=== PATIENT | female | born 1935 | race Caucasian/White ===

== ENCOUNTER 2017-07-15 18:48 | Emergency (ER) | payer OTHER ==
[~2017-07-15] VITALS: Ht 177.8 cm; Wt 66.6 kg
[2017-07-15 18:56] VITALS: PULSE 76; TEMP 36.5; O2SAT 95; Ht 177.8 cm; Wt 66.6 kg
--- NOTE | 2017-07-15 19:24 | EMERGENCY ROOM VISIT NOTE ---
History Report prepared by Ghanshyam: Everardo Mathew Under the Supervision of: Dr. Abe Stockton M.D. First contact with patient: 19:09 Chief Complaint: FALL Stated Complaint: FALL. LACERATION TO HEAD History of Present Illness The patient is a 82 year old female who presents to the Emergency Room via EMS with complaints of a fall that occurred 1 hour ago while the patient was walking down the steps at the [facility]. Patient states that she fell 8-10 steps. She adds that she fell down on her right side. Patient has a laceration to her head and bump on left leg. She has associated symptoms of dizziness and pain to her buttocks. Patient denies neck pain, headaches, shoulder pain, or back pain. Patient denies losing consciousness after the fall. Patient adds that she takes Xarelto. 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 Patient states her health had been normal prior to the fall. Patient adds that she is up to date with her tetanus shot. Source of History: patient Onset: 1 hour ago Position: other (Global) Modifying Factors (Relieving): other (None) Associated Symptoms: No LOC Note: Patient has a laceration to her head, bump on left leg, dizziness, and buttocks pain. Review of Systems See HPI for pertinent positives & negatives. A total of 10 systems reviewed and were otherwise negative. Past Medical & Surgical Medical Problems: (1) Atrial fibrillation Family History No pertinent family history. Social History Smoking Status: Never Smoker Current/Historical Medications Scheduled Calcium Carbonate-Vitamin D (Oscal 500/200 D-3), 1 TAB PO DAILY Irbesartan (Irbesartan), 1 TAB PO DAILY Levothyroxine Sodium (Levothyroxine Sodium), Unknown Dose PO DAILY Multivitamin (Multivitamin), 1 TAB PO DAILY Rivaroxaban (Xarelto), 20 MG PO DAILY Spironolactone (Aldactone), Unknown Dose PO DAILYBB Allergies Coded Allergies: Acetaminophen (Verified Adverse Reaction, Unknown, GI SYMPTOMS, 07/15/17) Oxycodone (Verified Adverse Reaction, Unknown, GI SYMPTOMS, 07/15/17) Uncoded Allergies: MORHINE (Adverse Reaction, Unknown, GI SYMPTOMS, 07/15/17) vomiting Physical Exam Vital Signs Date Time Temp Pulse Resp B/P (MAP) Pulse Ox O2 Delivery O2 Flow Rate FiO2 07/15/17 21:11 155/95 07/15/17 18:56 36.5 76 18 154/105 95 Room Air Physical Exam GENERAL: Patient is in no acute distress. HEENT: Bandage covering the posterior scalp, no obvious facial trauma, mucous membranes moist. NECK: Stiff collar in place, mildly tender to the lower c-spine on palpitation, no bony step-off. BACK: Nontender thoracic or lumbar spine, no contusions. LUNGS: Clear to auscultation bilaterally, no wheeze, no rhonchi, breath sounds equal. HEART: Irregular with 3/6 systolic murmur and a normal rate. ABDOMEN: Soft, nontender, bowel sounds positive, no hernias, no peritonitis. EXTREMITIES: 5 or 6cm hematoma to the left proximal lateral calf, no evidence of extremity fracture, full range of motion of all joints. NEUROLOGIC: Oriented x 3, no acute motor or sensory deficits, no focal weakness. SKIN: No rash, no jaundice, no diaphoresis. Medical Decision & Procedures ER Provider Diagnostic Interpretation: Radiology results as stated below per my review and radiologist interpretation: CERVICAL SPINE CT CT DOSE: HISTORY: fall, lower neck pain TECHNIQUE: Multiaxial CT images of the cervical spine were performed and reformatted in the sagittal and coronal plane without the use of contrast. A dose lowering technique was utilized adhering to the principles of ALARA. COMPARISON: None. FINDINGS: Nondisplaced left occipital bone fracture is again noted. There is reversal of the normal lordotic curvature. Mild disc space narrowing throughout the majority of the cervical spine. The right C3-C4 facets are fused. Tiny nondisplaced fracture at the left inferior endplate anterior osteophyte at C6. This is best seen on image 47 of the sagittal sequences. The C1-C2 interval is intact. No pneumothorax. IMPRESSION: 1. Tiny nondisplaced fracture at the left inferior endplate anterior osteophyte at C6. 2. The remaining cervical spine is intact. 3. Reversal of the normal lordotic curvature. 4. Nondisplaced left occipital bone fracture is again noted. Electronically signed by: Simba Lozano M.D. 07/15/2017 8:[address] NON[address]AST CT DOSE: 1010.24 mGy.cm HISTORY: Fall. TECHNIQUE: Multiaxial CT images of the head were performed without the use of intravenous contrast. Automated exposure control was utilized for this study. A dose lowering technique was utilized adhering to the principles of ALARA. Comparison: None. Findings: Opacified right sphenoid sinus. The mastoid air cells are clear. Posterior scalp swelling with a soft tissue laceration. There is also nondisplaced left occipital bone fracture which extends to the foramen magnum. Atrophy and microvascular ischemic changes are noted. Small subdural hematomas seen within the frontal lobes anteriorly. These measure a maximal thickness of 4 mm. There is also a small amount of subarachnoid and intraparenchymal hemorrhage within the left anterior temporal lobe and bilateral anterior inferior frontal lobes consistent with contusions. Trace subarachnoid hemorrhage within the basilar cisterns. There is also a trace subdural hematoma within the anterior hemispheric fissure. Impression: 1. Small amount of intracranial hemorrhage as described above which is likely posttraumatic. 2. Nondisplaced left occipital bone fracture. Electronically signed by: Simba Lozano M.D. 07/15/2017 8:00 PM Laboratory Results 07/15/17 20:30 Test 07/15/17 20:30 Prothrombin Time 12.7 SECONDS (9.0-12.0) Prothromb Time International Ratio 1.2 (0.9-1.1) Activated Partial Thromboplast Time 25.2 SECONDS (21.0-31.0) Partial Thromboplastin Ratio 1.0 Anion Gap 6.0 mmol/L (3-11) Est Creatinine Clear Calc Drug Dose 60.2 ml/min Estimated GFR () 83.9 Estimated GFR (Non- 72.4 BUN/Creatinine Ratio 24.1 (10-20) Calcium Level 9.9 mg/dl (8.5-10.1) Laboratory results reviewed by me. ED Course 1909: The patient was evaluated in room C9. A complete history and physical exam was performed. 0: Lidocaine/Epinephrine 20ml Infil 2024: Upon reexamination the patient will be further evaluated. I discussed results and treatment plan with the patient. She verbalizes agreement and understanding. I spoke with Dr. Prather of [facility] in [place]. We discussed the patient's results and findings. The patient will be evaluated by Dr. Prather for further management. Medical Decision Differential Diagnosis: Intracranial bleeding, skull fracture, c-spine fracture, scalp laceration, and fall. There is no concerning coagulopathy by our testing. No significant electrolyte abnormality or kidney failure. CBC was clotted and no results were possible. Brain CT shows a posterior/occipital skull fracture which is nondisplaced. There was a small amount of subdural and intraparenchymal blood. No midline shift. C-spine CT showed a fracture to an osteophyte, no bony malalignment. The patient was maintained in her stiff cervical collar. I did discuss all the findings with the patient and family. Transfer to a tertiary care/trauma center is required. The patient would be best served with a helicopter transport as she is on Xarelto. I talked with [facility] in [place]. The emergency room did except the patient in transfer. The patient is currently in stable condition. She is awake and interactive. Her airway is patent. She does not require intubation. She has not required anything for pain. I find no evidence for injury to the chest, back, abdomen. No evidence for extremity fracture. There is a hematoma to the left proximal lateral calf which should heal spontaneously. Head Trauma GCS Score: 15 Medication Reconcilliation Current Medication List: was personally reviewed by me Blood Pressure Screening Patient's blood pressure: Elevated blood pressure Referred to hospitalist. Consults Time Called: 2019 Consulting Physician: Dr. Prather - ER Attendant at [facility] in [place] Returned Call: 2022 Discussed the patient's case. Dr. Prather has accepted the patient in transfer. The patient will be evaluated for further management. Impression Primary Impression: Intracranial bleeding Additional Impressions: Skull fracture Cervical spine fracture Scalp laceration Fall Critical Care I have personally spent greater than 30 minutes of critical care time in the direct management of this patient. This includes bedside care, interpretation of diagnostic studies and testing, discussion with consultants, the patient, and family members, and other required patient management activities. This 30 minutes is in excess of all separately billable procedures. Scribe Attestation The scribe's documentation has been prepared under my direction and personally reviewed by me in its entirety. I confirm that the note above accurately reflects all work, treatment, procedures, and medical decision making performed by me. Departure Information Dispostion Transfer Acute Care Facility Referrals No Doctor, Assigned (PCP) Forms HOME CARE DOCUMENTATION FORM, IMPORTANT VISIT INFORMATION Patient Instructions My [facility] Problem Qualifiers
[2017-07-15] MEDS ORDERED: LIDO/EPINEPHRINE/SOD BICARB 20 ML VIAL INFIL ONE (19:30)
--- NOTE | 2017-07-15 20:01 | DIAGNOSTIC IMAGING REPORT ---
HEAD CT NONCONTRAST CT DOSE: 1010.24 mGy.cm HISTORY: Fall. TECHNIQUE: Multiaxial CT images of the head were performed without the use of intravenous contrast. Automated exposure control was utilized for this study. A dose lowering technique was utilized adhering to the principles of ALARA. Comparison: None. Findings: Opacified right sphenoid sinus. The mastoid air cells are clear. Posterior scalp swelling with a soft tissue laceration. There is also nondisplaced left occipital bone fracture which extends to the foramen magnum. Atrophy and microvascular ischemic changes are noted. Small subdural hematomas seen within the frontal lobes anteriorly. These measure a maximal thickness of 4 mm. There is also a small amount of subarachnoid and intraparenchymal hemorrhage within the left anterior temporal lobe and bilateral anterior inferior frontal lobes consistent with contusions. Trace subarachnoid hemorrhage within the basilar cisterns. There is also a trace subdural hematoma within the anterior hemispheric fissure. Impression: 1. Small amount of intracranial hemorrhage as described above which is likely posttraumatic. 2. Nondisplaced left occipital bone fracture. Electronically signed by: Simba Lozano M.D. 07/15/2017 8:00 PM Dictated Date/Time: 07/15/2017 7:53 PM
--- NOTE | 2017-07-15 20:07 | DIAGNOSTIC IMAGING REPORT ---
CERVICAL SPINE CT CT DOSE: HISTORY: fall, lower neck pain TECHNIQUE: Multiaxial CT images of the cervical spine were performed and reformatted in the sagittal and coronal plane without the use of contrast. A dose lowering technique was utilized adhering to the principles of ALARA. COMPARISON: None. FINDINGS: Nondisplaced left occipital bone fracture is again noted. There is reversal of the normal lordotic curvature. Mild disc space narrowing throughout the majority of the cervical spine. The right C3-C4 facets are fused. Tiny nondisplaced fracture at the left inferior endplate anterior osteophyte at C6. This is best seen on image 47 of the sagittal sequences. The C1-C2 interval is intact. No pneumothorax. IMPRESSION: 1. Tiny nondisplaced fracture at the left inferior endplate anterior osteophyte at C6. 2. The remaining cervical spine is intact. 3. Reversal of the normal lordotic curvature. 4. Nondisplaced left occipital bone fracture is again noted. Electronically signed by: Simba Lozano M.D. 07/15/2017 8:06 PM Dictated Date/Time: 07/15/2017 8:00 PM
[2017-07-15] MEDS ORDERED: MULT-506 PO (20:39)
[2017-07-15] MEDS ORDERED: SPIR25TA PO (20:39)
[2017-07-15] MEDS ORDERED: RIVA1TAB4 PO (20:39)
[2017-07-15] MEDS ORDERED: CALC200T PO (20:39)
[2017-07-15] MEDS ORDERED: IRBE1TAB50 PO (20:39)
[2017-07-15] MEDS ORDERED: LEVO50TA6 PO (20:39)
[2017-07-15 20:59] LABS: INR 1.2 (0.9-1.1); PTT PATIENT 25.2 SECONDS (21.0-31.0)
[2017-07-15 21:11] VITALS: BP 155/95
[2017-07-15 21:11] LABS: CALCIUM 9.9 mg/dl (8.5-10.1); CREATININE 0.77 mg/dl (0.60-1.20); POTASSIUM 4.1 mmol/L (3.5-5.1)
== END 2017-07-15 21:12 | disposition short-term general hospital (02) ==
LOC: C.EDC 18:50
DX: S06.360A Traumatic hemorrhage of cerebrum, unspecified, without loss of consciousness, initial encounter (principal); S02.109A Fracture of base of skull, unspecified side, initial encounter for closed fracture; S12.501A Unspecified nondisplaced fracture of sixth cervical vertebra, initial encounter for closed fracture; S01.01XA Laceration without foreign body of scalp, initial encounter; S80.12XA Contusion of left lower leg, initial encounter; W10.9XXA Fall (on) (from) unspecified stairs and steps, initial encounter; Y93.01 Activity, walking, marching and hiking; Y99.8 Other external cause status; Y92.39 Other specified sports and athletic area as the place of occurrence of the external cause; I48.91 Unspecified atrial fibrillation; Z79.01 Long term (current) use of anticoagulants